=== PATIENT | female | born 1940 | race Caucasian/White ===

== ENCOUNTER 2018-12-05 15:07 | Emergency (ER) | payer MEDICARE, BC ==
[2018-12-05 15:26] VITALS: RESP 18; TEMP 98.2
[2018-12-05] MEDS ORDERED: HYDROcodone/APAP 5-325MG 1 EACH TAB PO STA (15:35)
--- NOTE | 2018-12-05 15:36 | ED ---
Fall HPI - General Chief Complaint: Fall Stated Complaint: Fall, ankle pain Time Seen by Provider: 12/05/18 15:26 Source: patient Mode of arrival: ambulatory - History of Present Illness Initial Comments: 78-year-old female with past medical history of hypertension, controlled presents today for chief complaint of left ankle pain. Patient states that today around 8:30 AM she fell on ice twisting her left ankle. She denies any chest pain, dyspnea, headache, dizziness or any other complaints prior to falling. She states it was due to the ice. Patient states she was ambulatory with pain after however noticed significant swelling. Patient states she was concerned of fracture. When pain persisted she presented to the emergency department for evaluation. Patient denies head injury or neck injury upon falling. Denies any complaints of back pain including lumbar back pain. Patient denies any numbness, tingling or loss sensation of the lower extremity patient denies any coolness or pallor of the extremity. Patient states it is painful to range the left ankle. Remaining ROS, patient denies any recent fever , chills, shortness of breath, chest pain, back pain, abdominal pain, nausea or vomiting, dysuria or hematuria, constipation or diarrhea, headaches or visual changes, or any other complaints. Upon arrival pt pleasant, smiling. Well appearing no acute distress. - Related Data Allergies Allergy/AdvReac Type Severity Reaction Status Date / Time latex Allergy Rash/Hives Verified 12/05/18 15:21 Penicillins Allergy Rash/Hives Verified 12/05/18 15:21 Review of Systems ROS Statement: Those systems with pertinent positive or pertinent negative responses have been documented in the HPI. ROS Other: All systems not noted in ROS Statement are negative. Past Medical History Past Medical History: Hypertension, Syncope Additional Past Medical History / Comment(s): macular degeneration History of Any Multi-Drug Resistant Organisms: None Reported Past Surgical History: Breast Surgery, Cholecystectomy, Hernia Repair Additional Past Surgical History / Comment(s): partial thyroidectomy, L mastectomy Past Psychological History: No Psychological Hx Reported Smoking Status: Current every day smoker Past Alcohol Use History: None Reported Past Drug Use History: None Reported General Exam - General Exam Comments Initial Comments: General: The patient is awake and alert, in no distress, and does not appear acutely ill. Eye: +3 mm pupils are equal, round and reactive to light, extra-ocular movements are intact. No nystagmus. There is normal conjunctiva bilaterally. No signs of icterus. No [place] or raccoon sign. Ears, nose, mouth and throat: There are moist mucous membranes and no oral lesions. Neck: The neck is supple, there is no tenderness or JVD. The tenderness midline or paravertebral of the entire length of the spinal column from cervical to lumbar. Cardiovascular: There is a regular rate and rhythm. No murmur, rub or gallop is appreciated. Respiratory: Lungs are clear to auscultation, respirations are non-labored, breath sounds are equal. No wheezes, stridor, rales, or rhonchi. Musculoskeletal: Upon inspection of the ankles and feet bilaterally there is soft tissue swelling over the left lateral malleolus. There is mild ecchymosis. Patient has limited range of motion at the left ankle secondary to pain. No gross deformity of the ankle. Normal ROM, no tenderness of the right ankle and at the knees bilaterally. Strength 5/5 of the LE equal b/l. Sensation intact of the LE equal b/l . DP and radial pulses equal bilaterally 2+ . Neurological: A&O x 3. CN II-XII intact, There are no obvious motor or sensory deficits. Coordination appears grossly intact. Speech is normal. Skin: Skin is warm and dry and no rashes or lesions are noted. Psychiatric: Cooperative, appropriate mood & affect, normal judgment. Limitations: no limitations Course Vital Signs 12/05/18 12/05/18 15:21 16:34 Temperature 98.2 F Pulse Rate 58 L 57 L Respiratory 18 18 Rate Blood Pressure 129/59 171/72 O2 Sat by Pulse 94 L 95 Oximetry Medical Decision Making - Medical Decision Making Exam revealed no acute osseous process. There is no point tenderness of the medial malleolus. No pain to palpation of the foot or knee. Patient is neurovascularly intact. Patient is an inventory. Patient states she has a walker home which she will use for ambulation. Patient denies any other complaints. Examination unremarkable. Patient appears well. At this time I do feel patient is stable for discharge with outpatient orthopedic evaluation. Patient is placed in air splint. He is agreeable plan discharge, denies questions at this time. Return parameters were discussed at length patient verbalized understanding. I did review all radiographic imaging as my attending provider did as well Dr. Flores. He agreed to impression and plan. Disposition Clinical Impression: Left ankle sprain, Fall from slipping on ice Disposition: HOME SELF-CARE Condition: Good Instructions (If sedation given, give patient instructions): Ankle Sprain (ED) Additional Instructions: Please use medication as discussed. Please follow-up with orthopedic surgery in the next 1-2 days.. Please return to emergency room if the symptoms increase or worsen or for any other concerns. Is patient prescribed a controlled substance at d/c from ED?: No Referrals: Bob Mayes MD [Primary Care Provider] - 1-2 days Rigo Overton DO [Medical Doctor] - 1-2 days Time of Disposition: 16:28
--- NOTE | 2018-12-05 15:58 | XR ---
EXAMINATION TYPE: XR knee complete LT DATE OF EXAM: 12/05/2018 COMPARISON: NONE HISTORY: Pain TECHNIQUE: Four views are submitted. FINDINGS: Diffuse osteopenia. There are vascular calcifications. There is chondrocalcinosis with narrowing of t he medial compartment of the knee joint.. Osseous structures are intact. No acute fracture seen. IMPRESSION: 1. There is a linear lucency along the upper margin of patella seen only on the lateral view. This ma y be related to partial volume averaging.. Correlate with point tenderness to exclude hairline nondis placed fracture. Diffuse osteopenia and arthropathy.
--- NOTE | 2018-12-05 16:02 | XR ---
EXAMINATION TYPE: XR ankle complete LT DATE OF EXAM: 12/05/2018 COMPARISON: NONE HISTORY: Pain FINDINGS: Three views of the ankle demonstrate the ankle mortise to be intact and symmetric. The joint spaces are preserved. The osseous structures are intact. Diffuse osteopenia noted. Soft tissue swelling la terally. Bony density inferior to the medial malleolus. Small plantar calcaneal spur. IMPRESSION: 1. Soft tissue swelling laterally. Bony density inferior to the medial malleolus may be chronic corre late with point tenderness. 2. Diffuse osteopenia
[2018-12-05 16:36] VITALS: BP 171/72; PULSE 57
== END 2018-12-05 16:42 | disposition home or self-care (01) ==
LOC: EC 15:07
DX: S93.402A Sprain of unspecified ligament of left ankle, initial encounter (principal); F17.200 Nicotine dependence, unspecified, uncomplicated; Z91.040 Latex allergy status; Z88.0 Allergy status to penicillin; W00.0XXA Fall on same level due to ice and snow, initial encounter
CPT/HCPCS: 73562; 73610; 99283; 29515; L4350

== ENCOUNTER → 2019-03-05 | Outpatient (CLI) | payer MEDICARE, BC ==
--- NOTE | 2019-03-05 13:53 | MM ---
Reason for exam: additional evaluation requested from prior study. Last mammogram was performed 2 years and 10 months ago. History: Patient is postmenopausal and has history of breast cancer at age 63. Mastectomy of the left breast, May 12, 2003. Malignant stereotactic core biopsy of the left breast, April 23, 2003. Core biopsy of the left breast. Took estrogen for 3 years 6 months beginning at age 44. Took progesterone for 3 years 6 months beginning at age 44. Took antineoplastic for 5 years beginning at age 63. Physical Findings: Nurse did not find any significant physical abnormalities on exam. MG 3D Diag Mammo W/Cad RT CC and MLO view(s) were taken of the right breast. Prior study comparison: April 25, 2016, right breast MG 3d diag mammo w/cad RT. March 16, 2015, right breast MG diagnostic mammo RT w CAD. The breast tissue is heterogeneously dense. This may lower the sensitivity of mammography. There is no discrete abnormality. No significant new findings when compared with previous films. These results were verbally communicated with the patient and result sheet given to the patient on 03/05/19. ASSESSMENT: Benign, BI-RAD 2 RECOMMENDATION: Routine screening mammogram of the right breast in 1 year.
--- NOTE | 2019-03-05 14:28 | BD ---
EXAMINATION TYPE: Axial Bone Density DATE OF EXAM: 03/05/2019 COMPARISON: 2016 CLINICAL HISTORY: disorder of bone Height: 5'1 /2 Weight: 100 FRAX RISK QUESTIONS: History of Fracture in Adulthood: y Secondary Osteoporosis: current tobacco use: y RISK FACTORS HISTORY OF: Surgery to Spine/: L sp When: 2009 Active: n Postmenopausal woman: y Thyroid Medications: synthroid Which medication: How Lon MEDICATIONS: Additional Medications: blood pressure, synthroid Additional History: EXAM MEASUREMENTS: Bone mineral densitometry was performed using the [employer] System. Bone mineral density about the R hip (g/cm2): 0.747 Bone mineral density about the L hip (g/cm2): 0.725 T Score values are as follows: -----R Neck: -2.1 -----L Neck: -2.3 -----R Total: -2.5 -----L Total: -2.45 Bone mineral density has: Decreased -9.2% since study of: 10/19/2015 Bone mineral density about the L Wrist (g/cm2): 0.301 T Score values are as follows: -----Dist. R+U: -6.8 -----Prox. R+U: -4.6 -----Radius total: -6.2 IMPRESSION: Osteoporosis (T Score less than -2.5). There is increased fracture risk and therapy is usually indicated based on age. Re-Screen 1-2 years. NOTE: T-SCORE=SD OF THE YOUNG ADULT MEAN.
== END | disposition home or self-care (01) ==
LOC: RADMAMWWP 13:18
PROVIDERS: ATTEND Internal Medicine
DX: R92.8 Other abnormal and inconclusive findings on diagnostic imaging of breast (principal); M81.0 Age-related osteoporosis without current pathological fracture
CPT/HCPCS: 77080; 77065; G0279; 77061

== ENCOUNTER 2021-03-29 16:30 | Observation (INO) | payer MEDICARE, BC ==
[2021-03-29] MEDS ORDERED: SODIUM CHLORIDE 0.9% 500 ML 500 ML IV ONE (17:06)
--- NOTE | 2021-03-29 17:41 | ED ---
General Adult HPI - General Chief complaint: Fall Stated complaint: Fall Time Seen by Provider: 03/29/21 16:59 Source: patient, EMS, RN notes reviewed, old records reviewed Mode of arrival: EMS Limitations: no limitations - History of Present Illness Initial comments: 81-year-old female status post ground-level fall. Patient had been transported by EMS. She had complained of right ankle pain and right shoulder pain status post a fall. There was minor head injury as well. No loss consciousness. She was placed in a c-collar during transportation. She denied any preceding palpitations or chest pain. She states the fall was mechanical in nature. - Related Data Home Medications Medication Instructions Recorded Confirmed Aspirin [Adult Low Dose Aspirin EC] 81 mg PO DAILY 03/29/21 03/29/21 Calcium Carbonate [Calcium] 600 mg PO DAILY 03/29/21 03/29/21 Glucosamine Sulfate 500 mg PO DAILY 03/29/21 03/29/21 Levothyroxine Sodium [Synthroid] 50 mcg PO DAILY 03/29/21 03/29/21 Metoprolol Tartrate [Lopressor] 50 mg PO DAILY 03/29/21 03/29/21 Vit C/E/Zn/Coppr/Lutein/Zeaxan 2 tab PO DAILY 03/29/21 03/29/21 [Preservision Areds 2 Softgel] amLODIPine [Norvasc] 5 mg PO DAILY 03/29/21 03/29/21 Allergies Allergy/AdvReac Type Severity Reaction Status Date / Time latex Allergy Rash/Hives Verified 03/29/21 18:37 Penicillins Allergy Rash/Hives Verified 03/29/21 18:37 Review of Systems ROS Statement: Those systems with pertinent positive or pertinent negative responses have been documented in the HPI. ROS Other: All systems not noted in ROS Statement are negative. Past Medical History Past Medical History: Hypertension, Syncope Additional Past Medical History / Comment(s): macular degeneration History of Any Multi-Drug Resistant Organisms: None Reported Past Surgical History: Breast Surgery, Cholecystectomy, Hernia Repair Additional Past Surgical History / Comment(s): partial thyroidectomy, L mastectomy Past Psychological History: No Psychological Hx Reported Past Alcohol Use History: None Reported Past Drug Use History: None Reported General Exam Limitations: no limitations General appearance: alert, in no apparent distress Head exam: Present: atraumatic, normocephalic Eye exam: Present: normal appearance, PERRL Neck exam: Present: normal inspection. Absent: tenderness, meningismus Respiratory exam: Present: normal lung sounds bilaterally. Absent: respiratory distress, wheezes Cardiovascular Exam: Present: regular rate, normal rhythm GI/Abdominal exam: Present: soft. Absent: distended, tenderness Extremities exam: Absent: full ROM (Decreased range of motion of the right shoulder, with deformity. Right ankle, swelling at the lateral malleolus, no gross deformity, distal pulses are intact.) Neurological exam: Present: alert, oriented X3 Psychiatric exam: Present: normal affect, normal mood Skin exam: Present: warm, dry Course Vital Signs 03/29/21 16:46 Temperature 98.0 F Pulse Rate 58 L Respiratory 16 Rate Blood Pressure 198/81 O2 Sat by Pulse 95 Oximetry EKG Findings - EKG Comments: EKG Findings:: EKG: Sinus bradycardia, left anterior fascicular block. Q waves in the corneal leads rate of 56, NC interval 160, QRS duration 118, QTC 548. Medical Decision Making - Medical Decision Making 81-year-old female status post fall. Minor head trauma. Head CT is negative for intracranial hemorrhage mass effect. Did perform x-rays of the chest, ankle, and right shoulder. Patient has a right proximal humerus fracture. She's placed in a sling. I did initially plan to discharge this patient however she lives alone normally walks with a cane. She did have a additional right ankle sprain given the living situation and the injury she's had sustained she will be admitted, may require rehab. Case discussed with Felicita calderon for [facility] hospitalists - Lab Data Result diagrams: 03/29/21 17:46 03/29/21 17:46 Lab Results 03/29/21 03/29/21 03/29/21 Range/Units 17:46 17:46 19:25 WBC 17.0 H (3.8-10.6) k/uL RBC 4.80 (3.80-5.40) m/uL Hgb 15.1 (11.4-16.0) gm/dL Hct 44.2 (34.0-46.0) % MCV 92.1 (80.0-100.0) fL MCH 31.5 (25.0-35.0) pg MCHC 34.2 (31.0-37.0) g/dL RDW 12.9 (11.5-15.5) % Plt Count 191 (150-450) k/uL MPV 7.1 Neutrophils % 89 % Lymphocytes % 6 % Monocytes % 3 % Eosinophils % 1 % Basophils % 0 % Neutrophils # 15.2 H (1.3-7.7) k/uL Lymphocytes # 1.1 (1.0-4.8) k/uL Monocytes # 0.5 (0-1.0) k/uL Eosinophils # 0.1 (0-0.7) k/uL Basophils # 0.1 (0-0.2) k/uL Sodium 139 (137-145) mmol/L Potassium 4.1 (3.5-5.1) mmol/L Chloride 102 (98-107) mmol/L Carbon Dioxide 31 H (22-30) mmol/L Anion Gap 6 mmol/L BUN 20 H (7-17) mg/dL Creatinine 0.47 L (0.52-1.04) mg/dL Est GFR (CKD-EPI)AfAm >90 (>60 ml/min/1.73 sqM) Est GFR (CKD-EPI)NonAf >90 (>60 ml/min/1.73 sqM) Glucose 186 H (74-99) mg/dL Calcium 9.1 (8.4-10.2) mg/dL Total Bilirubin 0.2 (0.2-1.3) mg/dL AST 35 (14-36) U/L ALT 15 (4-34) U/L Alkaline Phosphatase 77 (38-126) U/L Total Protein 6.1 L (6.3-8.2) g/dL Albumin 3.8 (3.5-5.0) g/dL Urine Color Yellow Urine Appearance Clear (Clear) Urine pH 5.5 (5.0-8.0) Ur Specific [place] 1.017 (1.001-1.035) Urine Protein Trace H (Negative) Urine Glucose (UA) Negative (Negative) Urine Ketones Negative (Negative) Urine Blood Negative (Negative) Urine Nitrite Negative (Negative) Urine Bilirubin Negative (Negative) Urine Urobilinogen <2.0 (<2.0) mg/dL Ur Leukocyte Esterase Negative (Negative) Disposition Clinical Impression: Fall, Closed right humeral fracture Disposition: ADMITTED IP TO THIS HOSP Condition: Stable Is patient prescribed a controlled substance at d/c from ED?: No Referrals: Hermes Shah MD [Primary Care Provider] - 1-2 days Decision to Admit Reason: Admit from EC Decision Date: 03/29/21 Decision Time: 19:47
[2021-03-29 17:55] LABS: Basophils # (A) 0.1 k/uL (0-0.2); Basophils % (A) 0 %; Eosinophils # (A) 0.1 k/uL (0-0.7); Eosinophils % (A) 1 %; HCT 44.2 % (34.0-46.0); HGB 15.1 gm/dL (11.4-16.0); Lymphocytes # (A) 1.1 k/uL (1.0-4.8); Lymphocytes % (A) 6 %; MCH 31.5 pg (25.0-35.0); MCHC 34.2 g/dL (31.0-37.0); MCV 92.1 fL (80.0-100.0); Mean Platelet Volume 7.1; Monocytes # (A) 0.5 k/uL (0-1.0); Monocytes % (A) 3 %; Neutrophils # (A) 15.2 k/uL (1.3-7.7); Neutrophils % (A) 89 %; Platelet Count 191 k/uL (150-450); RDW 12.9 % (11.5-15.5)
--- NOTE | 2021-03-29 18:00 | XR ---
EXAMINATION TYPE: XR ankle complete RT DATE OF EXAM: 03/29/2021 CLINICAL HISTORY: Fall injury with pain TECHNIQUE: Frontal, lateral and oblique images of the right ankle are obtained. COMPARISON: None. FINDINGS: [place] osseous structures are demineralized which is noted to lower radiographic sensitivi ty. There is no acute fracture/dislocation evident in the right ankle. The ankle mortise appears wit hin normal limits. Moderate soft tissue swelling over the lateral malleolus extending anteriorly. Sma ll to moderate sized inferior calcaneal spur. IMPRESSION: Moderate soft tissue swelling without acute fracture or dislocation in the right ankle.
--- NOTE | 2021-03-29 18:02 | XR ---
EXAMINATION TYPE: XR chest 1V portable DATE OF EXAM: 03/29/2021 COMPARISON: Chest pain. HISTORY: Chest x-ray March 28, 2010 TECHNIQUE: Single frontal view of the chest is obtained. FINDINGS: There is chronic parenchymal change bilaterally without suspicious focal air space opacity , pleural effusion, or pneumothorax seen. The cardiac silhouette size is more prominent but within n ormal limits. Atherosclerotic change aortic knob. The osseous structures are demineralized. Displace d impacted fracture surgical neck right proximal humerus noted. Overlying bra strap current study. IMPRESSION: Chronic changes without acute pulmonary process. Acute impacted fracture surgical neck r ight proximal humerus.
--- NOTE | 2021-03-29 18:03 | XR ---
EXAMINATION TYPE: XR shoulder complete RT DATE OF EXAM: 03/29/2021 CLINICAL HISTORY: Fall injury with pain. TECHNIQUE: Three views of the right shoulder are obtained. COMPARISON: None. FINDINGS: [place] osseous structures are demineralized. Acute comminuted impacted fracture surgical ne ck right proximal humerus. There is displaced 3.9 x 0.6 cm curvilinear fracture fragment involving th e greater tuberosity. No glenohumeral joint dislocation. Moderate to severe narrowing at the acromioc lavicular joint with moderate superior capsular hypertrophy. Visualized ribs are intact. IMPRESSION: As above.
[2021-03-29 18:07] LABS: ALT 15 U/L (4-34); AST 35 U/L (14-36); African American GFR (CKD) >90 (>60 ml/min/1.73 sqM); Albumin 3.8 g/dL (3.5-5.0); Alkaline Phosphatase 77 U/L (38-126); Anion Gap 6 mmol/L; Blood Urea Nitrogen 20 mg/dL (7-17); Calcium 9.1 mg/dL (8.4-10.2); Carbon Dioxide 31 mmol/L (22-30); Chloride 102 mmol/L (98-107); Glucose 186 mg/dL (74-99); Non-African American GFR(CKD) >90 (>60 ml/min/1.73 sqM); Potassium 4.1 mmol/L (3.5-5.1); Sodium 139 mmol/L (137-145); Total Bilirubin 0.2 mg/dL (0.2-1.3); Total Protein 6.1 g/dL (6.3-8.2)
--- NOTE | 2021-03-29 18:23 | CT ---
EXAMINATION TYPE: CT brain yoli yao DATE OF EXAM: 03/29/2021 COMPARISON: NONE HISTORY: Fall injury with posterior headache and neck pain. CT DLP: 1281.7 mGycm. Automated Exposure Control for Dose Reduction was Utilized. TECHNIQUE: CT scan of the head and cervical spine are performed without contrast. FINDINGS: There is no acute intracranial hemorrhage or midline shift identified. Mild to moderate d iffuse ventricular and sulcal prominence. Mild to moderate low-attenuation in the deep and periventr icular white matter. Bilateral basal ganglia calcifications. The globes are intact and the visualized sinuses are clear. Patchy cerumen in the deep external auditory canals bilaterally. The calvarium is intact. Cervical spine is visualized in its entirety from C1 through upper thoracic levels and demonstrates g rade 1 retrolisthesis C5 on C6. Prevertebral soft tissue appears within normal limits. The C1-C2 ar ticulation is within normal limits on the coronal images. Osseous structures are demineralized. Ther e is dextroconvex scoliosis or positioning on coronal images. Moderate to severe disc space narrowing C5-C6 level. Posterior spur disc complex effaces the anterior thecal sac at this level. Vertebral abhijit dy heights are maintained. Posterior calcified disc herniation effaces the anterior thecal sac at C3- C4 level. Review of axial images shows multilevel uncovertebral facet degenerative changes contributi ng to multilevel bilateral neural foraminal narrowing, findings most prominent at right C4-C5 level. Lung apices show no pneumothorax. There is emphysematous change with [id number] biapical pleura l/parenchymal scarring. Some mucous plugging and/or nodularity in the upper lobes is felt present. Fo llow-up nonemergent chest CT is advised to further evaluate. IMPRESSION: 1. There is no acute fracture or dislocation evident in the cervical spine. 2. No acute intracranial hemorrhage or midline shift is seen.
[2021-03-29 19:41] LABS: Appearance,Urine Clear (Clear); Bilirubin,Urine Negative (Negative); Blood,Urine Negative (Negative); Color,Urine Yellow; Glucose,Urine (UA) Negative (Negative); Ketones,Urine Negative (Negative); Leukocyte Esterase,Urine Negative (Negative); Nitrite,Urine Negative (Negative); PH, Urine 5.5 (5.0-8.0); Protein,Urine Trace (Negative); Specific Gravity,Urine 1.017 (1.001-1.035); Urobilinogen,Urine <2.0 mg/dL (<2.0)
[2021-03-29] MEDS ORDERED: ONDANSETRON 4 MG/2 ML VIAL IVP PRN (19:43)
[2021-03-29] MEDS ORDERED: NALOXONE 0.4 MG/ML 1 ML VIAL IV PRN (19:43)
[2021-03-29] MEDS: MORPHINE SULFATE 4 MG/ML SYRINGE IV PRN (20:00)
[2021-03-29] MEDS: SODIUM CHLORIDE 0.9% 1,000 ML IV SCH (20:02)
[2021-03-30] MEDS: LEVOTHYROXINE 50 MCG TAB PO SCH (05:18)
[2021-03-30] MEDS ORDERED: NON FORMULARY DRUG (Glucosamine Sulfate 500 MG Cap) PO SCH (09:45)
[2021-03-30 10:27] LABS: Basophils % (A) 0 %; Eosinophils % (A) 0 %; HCT 36.3 % (34.0-46.0); HGB 12.4 gm/dL (11.4-16.0); Lymphocytes # (A) 0.8 k/uL (1.0-4.8); Lymphocytes % (A) 12 %; MCH 31.7 pg (25.0-35.0); MCHC 34.2 g/dL (31.0-37.0); MCV 92.6 fL (80.0-100.0); Monocytes # (A) 0.5 k/uL (0-1.0); Monocytes % (A) 7 %; Neutrophils # (A) 5.6 k/uL (1.3-7.7); Neutrophils % (A) 80 %; Platelet Count 163 k/uL (150-450); RBC 3.92 m/uL (3.80-5.40); RDW 12.9 % (11.5-15.5)
[2021-03-30] MEDS: MORPHINE SULFATE 4 MG/ML SYRINGE IV PRN ×2 (10:38→14:23)
[2021-03-30] MEDS: SODIUM CHLORIDE 0.9% 1,000 ML IV SCH ×2 (11:29→20:22)
--- NOTE | 2021-03-30 12:09 | P.CRDCN ---
History of Present Illness Consult date: 03/30/21 History of present illness: HISTORY OF PRESENT ILLNESS: This is a 81-year-old female with a past medical history significant for hypertension and hyperlipidemia. Patient is to follow in office with Dr. Philip but has not been seen in the office since 2013. We have been asked to see the patient in consultation for syncope. Patient examined at the bedside. Patient presented to the hospital with a chief complaint of right ankle pain and right shoulder pain. Patient states yesterday she was walking in her house when she lost her balance and fell. The patient did not pass out or lose consciousness. Her description of the fall is definitely mechanical in nature and not a syncopal episode. She denied any dizziness or lightheadedness. Denied chest pain or pressure. Denied shortness of breath. EKG reveals sinus bradycardia. Left anterior fascicular block. No signs of acute ischemia Chest xray chronic changes without acute pulmonary process. Acute impacted fracture surgical neck of right proximal humerus Right ankle x-ray: Moderate soft tissue swelling without acute fracture or dislocation the right ankle Right shoulder x-ray: Acute comminuted impacted fracture surgical neck right proximal humerus. Laboratory data: WBC 17.0. Hemoglobin 15.1. Platelet count 191. Sodium 139. Potassium 4.1. BUN 20. Creatinine 0.47. Current home cardiac medications include metoprolol tartrate 50 mg daily, amlodipine 5 mg daily, and aspirin 81 mg daily Most recent echocardiogram obtained in 2013 reveals normal LV size with normal function, trace aortic regurgitation, mild mitral regurgitation, [id number] tricuspid regurgitation. Patient underwent nuclear stress test in 2014 which was negative for ischemia REVIEW OF SYSTEMS: At the time of my exam: CONSTITUTIONAL: Denies fever or chills. HEENT: Denies blurred vision, vision changes, or eye pain. Denies hemoptysis CARDIOVASCULAR: Denies chest pain. Denies orthopnea. Denies PND. Denies palpitations RESPIRATORY: Denies shortness of breath. GASTROINTESTINAL: Denies abdominal pain. Denies nausea or vomiting. HEMATOLOGIC: Denies bleeding disorders. GENITOURINARY: Denies any blood in urine. SKIN: Denies pruitis. Denies rash. PHYSICAL EXAM: VITAL SIGNS: Reviewed. GENERAL: Well-developed in no acute distress. HEENT: Head is normocephalic. Pupils are equal, round. Sclerae anicteric. Mucous membranes of the mouth are moist. Neck supple. No JVD or thyromegaly LUNGS: Respirations even and unlabored. Lungs essentially clear to auscultation bilaterally. HEART: Regular rate and rhythm. S1 and S2 heard. Systolic murmur noted. Early diastolic murmur. ABDOMEN: Soft. Nondistended. Nontender. EXTREMITIES: No clubbing or cyanosis. Peripheral pulses intact. Right ankle swelling. Right arm in sling with decreased range of motion. NEUROLOGIC: Awake and alert. Oriented x 3. ASSESSMENT: Right humerus fracture S/P mechanical fall, no evidence of syncope Hypertension Hyperlipidemia Valvular heart disease PLAN: Resume home cardiac medications Obtain 2D echo to assess cardiac structure and function If patient requires surgical intervention, there is no absolute contrai ndications from a cardiac standpoint to proceed Further recommendations pending patient course Nurse practitioner note has been reviewed by physician. Signing provider agrees with the documented findings, assessment, and plan of care. Past Medical History Past Medical History: Hypertension, Syncope Additional Past Medical History / Comment(s): macular degeneration History of Any Multi-Drug Resistant Organisms: None Reported Past Surgical History: Back Surgery, Breast Surgery, Cholecystectomy, Hernia Repair Additional Past Surgical History / Comment(s): partial thyroidectomy, L mastectomy Past Psychological History: No Psychological Hx Reported Smoking Status: Current every day smoker Past Alcohol Use History: None Reported Past Drug Use History: None Reported Medications and Allergies Home Medications Medication Instructions Recorded Confirmed Type Aspirin [Adult Low Dose Aspirin EC] 81 mg PO DAILY 03/29/21 03/29/21 History Calcium Carbonate [Calcium] 600 mg PO DAILY 03/29/21 03/29/21 History Glucosamine Sulfate 500 mg PO DAILY 03/29/21 03/29/21 History Levothyroxine Sodium [Synthroid] 50 mcg PO DAILY 03/29/21 03/29/21 History Metoprolol Tartrate [Lopressor] 50 mg PO DAILY 03/29/21 03/29/21 History Vit C/E/Zn/Coppr/Lutein/Zeaxan 2 tab PO DAILY 03/29/21 03/29/21 History [Preservision Areds 2 Softgel] amLODIPine [Norvasc] 5 mg PO DAILY 03/29/21 03/29/21 History Allergies Allergy/AdvReac Type Severity Reaction Status Date / Time latex Allergy Rash/Hives Verified 03/29/21 18:37 Penicillins Allergy Rash/Hives Verified 03/29/21 18:37 Physical Exam Vitals: Vital Signs Temp Pulse Pulse Resp BP BP BP 03/30/21 07:00 98.0 F 70 16 157/70 03/30/21 01:56 20 03/30/21 01:02 98.1 F 66 16 99/58 03/29/21 21:42 97.7 F 61 20 102/55 03/29/21 20:07 62 16 118/53 03/29/21 16:46 98.0 F 58 L 16 198/81 Pulse Ox 03/30/21 07:00 90 L 03/30/21 01:56 03/30/21 01:02 90 L 03/29/21 21:42 92 L 03/29/21 20:07 97 03/29/21 16:46 95 Intake and Output 03/29/21 03/30/21 03/30/21 22:59 06:59 14:59 Output Total 500 Balance -500 Output: Urine 500 Straight 500 Other: Voiding Method Diaper Diaper # Voids 2 1 Weight 46.72 kg Results 03/30/21 09:13 03/29/21 17:46 Cardiac Enzymes 03/29/21 Range/Units 17:46 AST 35 (14-36) U/L CBC 03/29/21 03/30/21 Range/Units 17:46 09:13 WBC 17.0 H 7.0 (3.8-10.6) k/uL RBC 4.80 3.92 (3.80-5.40) m/uL Hgb 15.1 12.4 (11.4-16.0) gm/dL Hct 44.2 36.3 (34.0-46.0) % Plt Count 191 163 (150-450) k/uL Comprehensive Metabolic Panel 03/29/21 Range/Units 17:46 Sodium 139 (137-145) mmol/L Potassium 4.1 (3.5-5.1) mmol/L Chloride 102 (98-107) mmol/L Carbon Dioxide 31 H (22-30) mmol/L BUN 20 H (7-17) mg/dL Creatinine 0.47 L (0.52-1.04) mg/dL Glucose 186 H (74-99) mg/dL Calcium 9.1 (8.4-10.2) mg/dL AST 35 (14-36) U/L ALT 15 (4-34) U/L Alkaline Phosphatase 77 (38-126) U/L Total Protein 6.1 L (6.3-8.2) g/dL Albumin 3.8 (3.5-5.0) g/dL Current Medications Generic Name Dose Route Start Last Admin Trade Name Freq PRN Reason Stop Dose Admin Hydrocodone Bitart/Acetaminophen 1 each 03/29/21 19:43 Hydrocodone/Apap 5-325mg 1 Each Tab PO Q4HR PRN Moderate Pain Heparin Sodium (Porcine) 5,000 unit 03/30/21 21:00 Heparin Sodium,Porcine/Pf 5,000 Unit/0.5 Ml Syringe SQ Q12HR LORNA Sodium Chloride 1,000 mls @ 50 mls/hr 03/29/21 19:45 03/30/21 11:29 Saline 0.9% IV 50 mls/hr .Q20H LORNA Administration Levothyroxine Sodium 50 mcg 03/30/21 06:30 03/30/21 05:18 Levothyroxine 50 Mcg Tab PO 50 mcg DAILY@0630 LORNA Administration Morphine Sulfate 4 mg 03/29/21 19:43 03/30/21 10:38 Morphine Sulfate 4 Mg/Ml Syringe IV 4 mg Q4HR PRN Administration Severe Pain Naloxone HCl 0.2 mg 03/29/21 19:43 Naloxone 0.4 Mg/Ml 1 Ml Vial IV Q2M PRN Opioid Reversal Ondansetron HCl 4 mg 03/29/21 19:43 Ondansetron 4 Mg/2 Ml Vial IVP Q8HR PRN Nausea And Vomiting Intake and Output 03/29/21 03/30/21 03/30/21 22:59 06:59 14:59 Output Total 500 Balance -500 Output: Urine 500 Straight 500 Other: Voiding Method Diaper Diaper # Voids 2 1 Weight 46.72 kg 03/30/21 09:13 03/29/21 17:46
[2021-03-30 12:58] VITALS: BMI 17.1
--- NOTE | 2021-03-30 13:22 | P.CNOR ---
History of Present Illness - [facility] Consult date: 03/30/21 Consult reason: fracture (Right proximal humerus fracture and right ankle sprain) History of present illness: The patient is a pleasant 81-year-old female with a history of hypertension and syncope,who presented to the emergency department yesterday after sustaining a fall at home. She states she was reading in a chair and went to stand up and lost her balance. She fell onto her right side and hit her head. She was brought to the emergency department and a CT of the head was performed. X-rays of the right shoulder revealed a proximal humerus fracture and she was placed in a sling. She also has pain and swelling to the right ankle which x-rays were negative. Today, she states her pain is quite severe in the right shoulder. She is unable to ambulate and put weight onto the right ankle. She's also complaining of new pain in the left knee which she did not have yesterday. The patient does live alone but her daughter is down the street. Review of Systems Constitutional: Denies chills, Denies fatigue, Denies fever Cardiovascular: Denies chest pain, Denies shortness of breath Respiratory: Denies cough Gastrointestinal: Denies diarrhea, Denies nausea, Denies vomiting Musculoskeletal: right: ankle pain, ankle stiffness, ankle swelling, shoulder pain, shoulder stiffness, shoulder swelling, left: knee pain Neurological: Denies headaches Past Medical History Past Medical History: Hypertension, Syncope Additional Past Medical History / Comment(s): macular degeneration History of Any Multi-Drug Resistant Organisms: None Reported Past Surgical History: Back Surgery, Breast Surgery, Cholecystectomy, Hernia Repair Additional Past Surgical History / Comment(s): partial thyroidectomy, L ma stectomy Past Psychological History: No Psychological Hx Reported Smoking Status: Current every day smoker Past Alcohol Use History: None Reported Past Drug Use History: None Reported Medications and Allergies Home Medications Medication Instructions Recorded Confirmed Type Aspirin [Adult Low Dose Aspirin EC] 81 mg PO DAILY 03/29/21 03/29/21 History Calcium Carbonate [Calcium] 600 mg PO DAILY 03/29/21 03/29/21 History Glucosamine Sulfate 500 mg PO DAILY 03/29/21 03/29/21 History Levothyroxine Sodium [Synthroid] 50 mcg PO DAILY 03/29/21 03/29/21 History Metoprolol Tartrate [Lopressor] 50 mg PO DAILY 03/29/21 03/29/21 History Vit C/E/Zn/Coppr/Lutein/Zeaxan 2 tab PO DAILY 03/29/21 03/29/21 History [Preservision Areds 2 Softgel] amLODIPine [Norvasc] 5 mg PO DAILY 03/29/21 03/29/21 History Allergies Allergy/AdvReac Type Severity Reaction Status Date / Time latex Allergy Rash/Hives Verified 03/29/21 18:37 Penicillins Allergy Rash/Hives Verified 03/29/21 18:37 Physical Examination The patient is a pleasant 81-year-old female in no acute distress. She is alert and oriented 3. Exam of the right shoulder reveals no open wounds or abrasions noted. Mild swelling is present. Minimal ecchymosis present. No tenderness along the cervical spine but does have some mild pain to the trapezius muscle. No elbow pain present. Good hand and wrist range of motion. No numbness present. Good radial pulse. Exam of the right ankle reveals swelling to the lateral aspect. Pain upon palpation to the lateral malleolus and ATFL. No medial malleolus pain. She is able to wiggle her toes without difficulty. Neurological and circulatory status is intact. Exam of the left knee reveals no swelling or ecchymosis present. No open wounds. There is pain upon palpation to the anterior aspect of the knee. Good foot and ankle motion. Neurological and circulatory status is intact of the left lower extremity. Results - Labs Labs: Abnormal Lab Results - Last 24 Hours (Table) 03/29/21 03/29/21 03/29/21 Range/Units 17:46 17:46 19:25 WBC 17.0 H (3.8-10.6) k/uL Neutrophils # 15.2 H (1.3-7.7) k/uL Lymphocytes # (1.0-4.8) k/uL Carbon Dioxide 31 H (22-30) mmol/L BUN 20 H (7-17) mg/dL Creatinine 0.47 L (0.52-1.04) mg/dL Glucose 186 H (74-99) mg/dL Total Protein 6.1 L (6.3-8.2) g/dL Urine Protein Trace H (Negative) 03/30/21 Range/Units 09:13 WBC (3.8-10.6) k/uL Neutrophils # (1.3-7.7) k/uL Lymphocytes # 0.8 L (1.0-4.8) k/uL Carbon Dioxide (22-30) mmol/L BUN (7-17) mg/dL Creatinine (0.52-1.04) mg/dL Glucose (74-99) mg/dL Total Protein (6.3-8.2) g/dL Urine Protein (Negative) H & H 03/29/21 03/30/21 Range/Units 17:46 09:13 Hgb 15.1 12.4 (11.4-16.0) gm/dL Hct 44.2 36.3 (34.0-46.0) % Result Diagrams: 03/30/21 09:13 03/29/21 17:46 - Diagnostic results Shoulder x-ray: image reviewed (X-rays of the right shoulder reveal a minimally displaced greater tuberosity fracture and humeral neck fracture, no dislocation noted.) Ankle/Foot x-ray: image reviewed (X-rays of the right ankle reveal no acute fracture seen. Soft tissue swelling present.) Assessment and Plan (1) Right ankle sprain Current Visit: Yes Status: Acute Code(s): S93.401A - SPRAIN OF UNSPECIFIED LIGAMENT OF RIGHT ANKLE, INIT ENCNTR SNOMED Code(s): 34613797 (2) Knee pain, left Current Visit: Yes Status: Acute Code(s): M25.562 - PAIN IN LEFT KNEE SNOMED Code(s): 2847803626 (3) Closed right humeral fracture Current Visit: Yes Status: Acute Code(s): S42.301A - UNSP FRACTURE OF SHAFT OF HUMERUS, RIGHT ARM, INIT SNOMED Code(s): 00186508 (4) Fall Current Visit: Yes Status: Acute Code(s): W19.XXXA - UNSPECIFIED FALL, INITIAL ENCOUNTER SNOMED Code(s): 1892569 Plan: The clinical and x-ray findings were discussed with the patient and the patient's daughter at the bedside. We will obtain x-rays of the left knee to day. The patient will remain in arm sling and a new sling has been ordered. A premium equalizer boot has been ordered for the right ankle. The patient may weight-bear as tolerated with use of cane, quad cane, or jung-walker. Physical and occupational therapy has been ordered. The patient will likely need skilled rehab placement upon discharge. We will continue to follow patient closely and make further recommendations as needed.
--- NOTE | 2021-03-30 13:41 | XR ---
EXAMINATION TYPE: XR knee limited LT DATE OF EXAM: 03/30/2021 CLINICAL HISTORY: pain after fall TECHNIQUE: Two views of the left knee are obtained. COMPARISON: 12/05/2018 FINDINGS: There is no acute fracture/dislocation evident in left knee. Medial and lateral chondroca lcinosis is present. There is soft tissue swelling about the medial left knee. Vascular calcifications are seen. IMPRESSION: 1. Medial soft tissue swelling 2. Medial and lateral chondrocalcinosis.
--- NOTE | 2021-03-30 14:44 | P.HPIM ---
History of Present Illness H&P Date: 03/30/21 Chief Complaint: Fall Patient is a 81-year-old female with a known history of hypertension, basilar heart disease, macular degeneration, currently everyday smoker and history of falls was brought to the hospital by EMS status post fall. Patient states that she was getting out of the chair and lost balance and fell on her right side. She did hit her head. She was also complaining of shoulder pain and ankle pain.. Denied any chest pain or dizziness. Denied any loss of consciousness. Patient says that she usually loses her balance and had episodes of multiple falls before. Denied any fever or chills. No headache or dizziness or lightheadedness. Denied any recent illnesses. No nausea vomiting or abdominal pain or diarrhea. No dysuria or hematuria. X-ray of the right hand showed moderate soft tissue swelling without acute fracture or dislocation in the right ankle. Chest x-ray showed chronic changes without acute pulmonary process. Acute impacted fracture surgical neck right proximal humerus. X-ray of the shoulder was done. CT head and cervical spine showed no acute fracture dislocation. No acute intracranial hemorrhage or midline shift noted. Next and EKG showed sinus bradycardia. Laboratory data showed WBC 17.0, hemoglobin 15.1 which is 191 and neutrophils 15.2 BUN 20 and creatinine 0.47 and blood sugar is 186 UA negative for infection. Review of Systems Constitutional: Patient denies any fever or chills . No generalized weakness or weight loss. Abdomen: Patient denied nausea vomiting and diarrhea and abdominal pain. Cardiovascular: Patient denies any chest pain or short of breath no pal pitations. Respiratory: patient denied any cough is from production. No shortness of breath Neurologic: Patient denied any numbness or tingling headache. Musculoskeletal: Patient denies any complaints of joint swelling or deformity. Right ankle pain and right shoulder pain. Skin: Negative Psychiatric: Negative Endocrine: No heat or cold intolerance. No recent weight gain. Genitourinary: No dysuria or hematuria. All other 14 point ROS negative except the above Past Medical History Past Medical History: Hypertension, Syncope Additional Past Medical History / Comment(s): macular degeneration History of Any Multi-Drug Resistant Organisms: None Reported Past Surgical History: Back Surgery, Breast Surgery, Cholecystectomy, Hernia Repair Additional Past Surgical History / Comment(s): partial thyroidectomy, L mastectomy Past Psychological History: No Psychological Hx Reported Smoking Status: Current every day smoker Past Alcohol Use History: None Reported Past Drug Use History: None Reported Medications and Allergies Home Medications Medication Instructions Recorded Confirmed Type Aspirin [Adult Low Dose Aspirin EC] 81 mg PO DAILY 03/29/21 03/29/21 History Calcium Carbonate [Calcium] 600 mg PO DAILY 03/29/21 03/29/21 History Glucosamine Sulfate 500 mg PO DAILY 03/29/21 03/29/21 History Levothyroxine Sodium [Synthroid] 50 mcg PO DAILY 03/29/21 03/29/21 History Metoprolol Tartrate [Lopressor] 50 mg PO DAILY 03/29/21 03/29/21 History Vit C/E/Zn/Coppr/Lutein/Zeaxan 2 tab PO DAILY 03/29/21 03/29/21 History [Preservision Areds 2 Softgel] amLODIPine [Norvasc] 5 mg PO DAILY 03/29/21 03/29/21 History Allergies Allergy/AdvReac Type Severity Reaction Status Date / Time latex Allergy Rash/Hives Verified 03/29/21 18:37 Penicillins Allergy Rash/Hives Verified 03/29/21 18:37 Physical Exam Vitals: Vital Signs Temp Pulse Pulse Resp BP BP BP 03/30/21 07:00 98.0 F 70 16 157/70 03/30/21 01:56 20 03/30/21 01:02 98.1 F 66 16 99/58 03/29/21 21:42 97.7 F 61 20 102/55 03/29/21 20:07 62 16 118/53 03/29/21 16:46 98.0 F 58 L 16 198/81 Pulse Ox 03/30/21 07:00 90 L 03/30/21 01:56 03/30/21 01:02 90 L 03/29/21 21:42 92 L 03/29/21 20:07 97 03/29/21 16:46 95 Intake and Output 03/29/21 03/30/21 03/30/21 22:59 06:59 14:59 Output Total 500 Balance -500 Output: Urine 500 Straight 500 Other: Voiding Method Diaper # Voids 2 1 Weight 46.72 kg PHYSICAL EXAMINATION: Patient is lying in the bed comfortably, no acute distress, awake alert and oriented.. HEENT: Normocephalic. Neck is supple. Pupils reactive. Nostrils clear. Oral cavity is moist. Ears reveal no drainage. Neck reveals no JVD, carotid bruits, or thyromegaly. CHEST EXAMINATION: Trachea is central. Symmetrical expansion. Lung mcginnis clear to auscultation and percussion. CARDIAC: Normal S1, S2 with no gallops. No murmurs ABDOMEN: Soft. Bowel sounds normal. No organomegaly. No abdominal bruits. Extremities: reveal no edema. No clubbing or cyanosis Neurologically awake, alert, oriented x3 with well-coordinated movements. No focal deficits noted Skin: No rash or skin lesions. Psychiatric: Coperative. Nonsuicidal Musculoskeletal: No joint swelling or deformity. Right ankle swelling. Right arm Sling in place.. Results CBC & Chem 7: 03/30/21 09:13 03/29/21 17:46 Labs: Abnormal Lab Results - Last 24 Hours (Table) 03/29/21 03/29/21 03/29/21 Range/Units 17:46 17:46 19:25 WBC 17.0 H (3.8-10.6) k/uL Neutrophils # 15.2 H (1.3-7.7) k/uL Carbon Dioxide 31 H (22-30) mmol/L BUN 20 H (7-17) mg/dL Creatinine 0.47 L (0.52-1.04) mg/dL Glucose 186 H (74-99) mg/dL Total Protein 6.1 L (6.3-8.2) g/dL Urine Protein Trace H (Negative) Thrombosis Risk Factor Assmnt - DVT/VTE Prophylaxis DVT/VTE Prophylaxis: Pharmacologic Prophylaxis ordered - Choose All That Apply Any of the Below Risk Factors Present?: No Other Risk Factors: Yes Each Risk Factor Represents 3 Points: Age 75 years or older Each Risk Factor Represents 5 Points: Multiple trauma (< 1 month) Thrombosis Risk Factor Assessment Total Risk Factor Score: 8 Thrombosis Risk Factor Assessment Level: High Risk Assessment and Plan Assessment: Status post mechanical fall. Right humeral neck fracture with minimal displacement. No dislocation. Right ankle swelling History of valvular heart disease, mild to moderate TR History of multiple falls. Hypertension Hyperlipidemia DVT prophylaxis. Plan: Patient will be continued on pain management. Right arm sling was placed. Orth opedic surgery was consulted. Due to history of valvular heart disease 2-D echocardiogram will be obtained and answering cardiology evaluation. Orthostatic vitals were ordered. Continue to follow closely. PT OT will be consulted.
[2021-03-30] MEDS: HYDROcodone/APAP 5-325MG 1 EACH TAB PO PRN (20:20)
[2021-03-30] MEDS: HEPARIN SODIUM,PORCINE/PF 5,000 UNIT/0.5 ML SYRINGE SQ SCH (20:22)
[2021-03-31] MEDS: LEVOTHYROXINE 50 MCG TAB PO SCH (05:33)
[2021-03-31] MEDS: HYDROcodone/APAP 5-325MG 1 EACH TAB PO PRN (05:33)
[2021-03-31] MEDS: HEPARIN SODIUM,PORCINE/PF 5,000 UNIT/0.5 ML SYRINGE SQ SCH (07:49)
--- NOTE | 2021-03-31 08:06 | P.PN ---
Subjective Progress Note Date: 03/31/21 This patient is an 81-year-old female with past medical history of hypertension presented to [facility] emergency currently yesterday after sustaining a mechanical fall at home. Orthopedics was consulted for right proximal humerus fracture right ankle sprain. Patient is seen and examined bedside this morning. She states the pain in her right shoulder is moderate. She states her pain is well-controlled if she doesn't move her shoulder. She remains immobilized in a sling. The patient continues to experience pain in the right ankle. A tall CAM boot was ordered yesterday. She states her left knee pain has improved. She denies numbness or tingling of the right upper extremity. Patient states she plans to go to [facility] at discharge. Patient has no new complaints today. Vital signs stable. Objective - Vital Signs Vital signs: Vital Signs Temp 99.5 F 03/31/21 00:30 Pulse 83 03/31/21 00:30 Resp 18 03/31/21 07:38 BP 116/67 03/31/21 00:30 Pulse Ox 93 L 03/31/21 00:30 Intake & Output 03/30/21 03/31/21 03/31/21 18:59 06:59 18:59 Output Total 700 Balance -700 Weight 46.72 kg Output: Urine 700 Other: Voiding Method Diaper Indwelling Catheter # Voids 0 0 - Exam On examination, the patient is sitting up in bed eating breakfast. She is in no acute distress. She is alert and oriented 3. On inspection of the right shoulder, there is mild swelling. There is diffuse pain with palpation of the shoulder. No pain with palpation of the clavicle, C-spine, elbow, forearm, wrist, hand. No pain with passive range of motion of the wrist or fingers. Motor and sensory function is intact of the right upper extremity. Radial pulse palpable, the right upper extremity is warm and well-perfused. On inspection of the right ankle, there is diffuse swelling and ecchymosis. There is pain on palpation of the medial malleolus. Range of motion is not tested at this time. Motor and sensory function is intact of the right lower extremity. Dorsalis pedis pulse +2. The right lower extremity is warm and well-perfused with brisk capillary refill distally. Calf is soft and nontender to palpation. No evidence of DVT. On inspection of the left knee, there is no knee effusion, no ecchymosis. There is no pain on palpation of the knee. No pain with passive range of motion of the knee. Calf is soft and nontender to palpation. No pain to passive range of motion of the hips bilaterally. - Labs CBC & Chem 7: 03/30/21 09:13 03/29/21 17:46 Labs: Abnormal Lab Results - Last 24 Hours (Table) 03/30/21 Range/Units 09:13 Lymphocytes # 0.8 L (1.0-4.8) k/uL - Imaging and Cardiology Right ankle x-rays 03/29/21: Nondisplaced medial malleolus fracture. No additional fractures identified. Ankle mortise intact. Right shoulder x-rays 03/29/21: Minimally displaced greater tuberosity fracture and humeral neck fracture, no dislocation noted. Left knee x-rays 03/30/21: No acute fractures identified. Assessment and Plan Assessment: Minimally displaced right proximal humerus fracture Nondisplaced medial malleolus fracture, right ankle Plan: - Clinical and imaging findings were discussed with patient. She'll continue to immobilize the right upper extremity in a sling. In regards to the right ankle, recommended immobilization with a tall CAM boot. Upon reevaluation of the right ankle x-rays, it does appear that she has a nondisplaced medial malleolus fracture. Therefore, she should remain nonweightbearing on the right lower extremity while wearing a tall CAM boot. - Discussed with the patient due to her right proximal humerus fracture and right medial malleolus fracture, she would most likely benefit from discharge to a skilled rehab. Patient states she is planning to discharge to [facility]. - We'll continue to follow patient and make recommendations as needed.
[2021-03-31] MEDS ORDERED: ASPIRIN 81 MG PO SCH (09:00)
[2021-03-31] MEDS ORDERED: METOPROLOL TARTRATE 50 MG TAB PO SCH (09:00)
[2021-03-31] MEDS ORDERED: amLODIPine 5 MG TAB PO SCH (09:00)
--- NOTE | 2021-03-31 09:11 | ECHOF ---
Referral Reason:Dizziness MEASUREMENTS -------- HEIGHT: 165.1 cm WEIGHT: 46.7 kg BP: 157/70 RVIDd: 4.1 cm (< 3.3) IVSd: 1.4 cm (0.6 - 1.1) LVIDd: 2.7 cm (3.9 - 5.3) LVPWd: 1.5 cm (0.6 - 1.1) IVSs: 1.5 cm LVIDs: 1.7 cm LVPWs: 1.6 cm LAESV Index (A-L): 44.29 ml/m Ao Diam: 2.7 cm (2.0 - 3.7) AV Cusp: 1.8 cm (1.5 - 2.6) LA Diam: 4.1 cm (2.7 - 3.8) MV EXCURSION: 8.807 mm (> 18.000) MV EF SLOPE: 56 mm/s (70 - 150) EPSS: 0.3 cm MV E Kavon: 1.41 m/s MV DecT: 249 ms MV A Kavon: 1.79 m/s MV E/A Ratio: 0.79 AV maxP.57 mmHg AV meanP.65 mmHg RAP: 5.00 mmHg RVSP: 89.53 mmHg FINDINGS -------- Sinus rhythm. This was a technically adequate study. The left ventricular size is normal. There is moderate concentric left ventricular hypertrophy. O verall left ventricular systolic function is normal with, an EF between 55 - 60 %. The right ventricle is moderate to severely enlarged. LA is severely dilated >40 ml/m2 The right atrium is mildly enlarged. Interatrial and interventricular septum intact. There is moderate to severe aortic valve sclerosis. There is no evidence of aortic regurgitation. There is mild aortic stenosis present. Peak/mean gradient across the Aortic Valve is 26.57mmHg / 1 5.65mmHg. Moderate mitral annular calcification present. [id number] mitral regurgitation is present. Mild mitral stenosis , with a MVA of 2.8cm (by PHT) Moderate tricuspid regurgitation present. There is severe pulmonary hypertension. The right ventr icular systolic pressure, as measured by Doppler, is 89.53mmHg. Trace/mild (physiologic) pulmonic regurgitation. The aortic root size is normal. Normal inferior vena cava with normal inspiratory collapse consistent with estimated right atrial pre ssure of 5 mmHg. There is no pericardial effusion. CONCLUSIONS -------- 1. There is moderate concentric left ventricular hypertrophy. 2. Overall left ventricular systolic function is normal with, an EF between 55 - 60 %. 3. The right ventricle is moderate to severely enlarged. 4. LA is severely dilated >40 ml/m2 5. The right atrium is mildly enlarged. 6. There is moderate to severe aortic valve sclerosis. 7. There is mild aortic stenosis present. 8. Peak/mean gradient across the Aortic Valve is 26.57mmHg / 15.65mmHg. 9. Moderate mitral annular calcification present. 10. Nypkkucx-lb-bflqrq mitral regurgitation is present. 11. Mild mitral stenosis. 12. , with a MVA of 2.8cm (by PHT) 13. Moderate tricuspid regurgitation present. 14. There is severe pulmonary hypertension. 15. Trace/mild (physiologic) pulmonic regurgitation. [employer] WORKER: Eleonora Murray RDCS
--- NOTE | 2021-03-31 11:14 | P.PN ---
Subjective Progress Note Date: 03/31/21 HISTORY OF PRESENT ILLNESS: This is a 81-year-old female with a past medical history significant for hypertension and hyperlipidemia. Patient is to follow in office with Dr. Philip but has not been seen in the office since 2013. We have been asked to see the patient in consultation for syncope. Patient examined at the bedside. Patient presented to the hospital with a chief complaint of right ankle pain and right shoulder pain. Patient states yesterday she was walking in her house when she lost her balance and fell. The patient did not pass out or lose consciousness. Her description of the fall is definitely mechanical in nature and not a syncopal episode. She denied any dizziness or lightheadedness. Denied chest pain or pressure. Denied shortness of breath. EKG reveals sinus bradycardia. Left anterior fascicular block. No signs of acute ischemia Chest xray chronic changes without acute pulmonary process. Acute impacted fracture surgical neck of right proximal humerus Right ankle x-ray: Moderate soft tissue swelling without acute fracture or dislocation the right ankle Right shoulder x-ray: Acute comminuted impacted fracture surgical neck right proximal humerus. Laboratory data: WBC 17.0. Hemoglobin 15.1. Platelet count 191. Sodium 139. Potassium 4.1. BUN 20. Creatinine 0.47. Current home cardiac medications include metoprolol tartrate 50 mg daily, amlodipine 5 mg daily, and aspirin 81 mg daily Most recent echocardiogram obtained in 2013 reveals normal LV size with normal function, trace aortic regurgitation, mild mitral regurgitation, mild-to- moderate tricuspid regurgitation. Patient underwent nuclear stress test in 2013 which was negative for ischemia 03/31/2021 Patient examined this morning at the bedside. Patient denies chest pain or pressure. Denies shortness of breath. Orthopedics evaluated patient and no plans for surgical intervention. Patient now has a boot to her right lower extremity. Echocardiogram completed revealed ejection fraction 55-60%, moderate to severe aortic valve sclerosis, mild aortic stenosis, moderate to severe mitral regurgitation, moderate tricuspid regurgitation, and severe pulmonary hypertension PHYSICAL EXAM: VITAL SIGNS: Reviewed. GENERAL: Well-developed in no acute distress. HEENT: Head is normocephalic. Pupils are equal, round. Sclerae anicteric. Mucous membranes of the mouth are moist. Neck supple. No JVD or thyromegaly LUNGS: Respirations even and unlabored. Lungs essentially clear to auscultation bilaterally. HEART: Regular rate and rhythm. S1 and S2 heard. Systolic murmur noted. Early diastolic murmur. ABDOMEN: Soft. Nondistended. Nontender. EXTREMITIES: No clubbing or cyanosis. Peripheral pulses intact. Right ankle swelling-boot to right lower extremity noted. Right arm in sling with decreased range of motion. NEUROLOGIC: Awake and alert. Oriented x 3. ASSESSMENT: Right humerus fracture S/P mechanical fall, no evidence of syncope Hypertension Hyperlipidemia Valvular heart disease PLAN: Continue current cardiac medications No further inpatient recommendations from a cardiac standpoint We will sign off. Please reconsult if needed Nurse practitioner note has been reviewed by physician. Signing provider agrees with the documented findings, assessment, and plan of care. Objective - Vital Signs Vital signs: Vital Signs Temp 98.1 F 03/31/21 07:00 Pulse 84 03/31/21 07:00 Resp 18 03/31/21 07:38 BP 116/73 03/31/21 07:00 Pulse Ox 98 03/31/21 07:00 Intake & Output 03/30/21 03/31/21 03/31/21 18:59 06:59 18:59 Intake Total 100 Output Total 700 Balance -700 100 Weight 46.72 kg Intake: Oral 100 Output: Urine 700 Other: Voiding Method Diaper Indwelling Catheter # Voids 0 0 - Labs CBC & Chem 7: 03/30/21 09:13 03/29/21 17:46
--- NOTE | 2021-03-31 15:06 | P.DS ---
Providers Date of admission: 03/29/21 19:43 Expected date of discharge: 03/31/21 Attending physician: Dominic Hook Consults: 03/29/21 19:44 Consult Physician Routine Consulting Provider: Dax Talley Consult Reason/Comments: Right humerus fracture Do you want consulting provider notified?: Yes Primary care physician: Hermes Shah MD Hospital Course: Discharge diagnosis Status post mechanical fall. Right humeral neck fracture with minimal displacement. No dislocation. Nondisplaced medial malleolus fracture, right ankle Right ankle swelling History of valvular heart disease, mild to moderate TR History of multiple falls. Hypertension Hyperlipidemia DVT prophylaxis. Hospital course Patient is a 81-year-old female with a known history of hypertension, basilar heart disease, macular degeneration, currently everyday smoker and history of falls was brought to the hospital by EMS status post fall. Patient states that she was getting out of the chair and lost balance and fell on her right side. She did hit her head. She was also complaining of shoulder pain and ankle pain.. Denied any chest pain or dizziness. Denied any loss of consciousness. Patient says that she usually loses her balance and had episodes of multiple falls before. Denied any fever or chills. No headache or dizziness or lightheadedness. Denied any recent illnesses. No nausea vomiting or abdominal pain or diarrhea. No dysuria or hematuria. X-ray of the right hand showed moderate soft tissue swelling without acute fracture or dislocation in the right ankle. Chest x-ray showed chronic changes without acute pulmonary process. Acute impacted fracture surgical neck right proximal humerus. X-ray of the shoulder was done. CT head and cervical spine showed no acute fracture dislocation. No acute intracranial hemorrhage or midline shift noted. Next and EKG showed sinus bradycardia. Laboratory data showed WBC 17.0, hemoglobin 15.1 which is 191 and neutrophils 15.2 BUN 20 and creatinine 0.47 and blood sugar is 186 UA negative for infection. Patient was continued on pain management with [place] 5.. Right arm sling was placed. Patient also found have right ankle medial malleolus fractures nondisplaced. Nonweightbearing boot Placed.. Orthopedic surgery and cardiology has seen the patient.. Due to history of valvular heart disease 2-D echocardiogram was obtained. 2-D echo showed normal EF. Moderate TR and severe pulmonary hypertension was noted.. Patient was seen by PT OT and recommends rehab transfer. Otherwise patient is hemodynamically stable. Leukocytosis is resolved. Mostly reactive. No other acute issues at this time. Patient will be discharged to rehab. PHYSICAL EXAMINATION: Patient is lying in the bed comfortably, no acute distress, awake alert and oriented.. HEENT: Normocephalic. Neck is supple. Pupils reactive. Nostrils clear. Oral cavity is moist. Ears reveal no drainage. Neck reveals no JVD, carotid bruits, or thyromegaly. CHEST EXAMINATION: Trachea is central. Symmetrical expansion. Lung mcginnis clear to auscultation and percussion. CARDIAC: Normal S1, S2 with no gallops. Systolic murmur present. ABDOMEN: Soft. Bowel sounds normal. No organomegaly. No abdominal bruits. Extremities: reveal no edema. No clubbing or cyanosis Neurologically awake, alert, oriented x3 with well-coordinated movements. No focal deficits noted Skin: No rash or skin lesions. Psychiatric: Coperative. Nonsuicidal Musculoskeletal: No joint swelling or deformity. Right ankle swelling. Right hand sling in place. Right arm Sling in place.. Vital Signs 03/31/21 03/31/21 07:00 07:38 Temperature 98.1 F Pulse Rate [ 84 Pulse Oximetery ] Respiratory 16 18 Rate Blood Pressure 116/73 [Right Calf] O2 Sat by Pulse 98 Oximetry Total time taken greater than 35 minutes including 18 minutes for counseling and coordination of care. Patient Condition at Discharge: Stable Plan - Discharge Summary Discharge Rx Participant: Yes New Discharge Prescriptions: Continue Metoprolol Tartrate [Lopressor] 50 mg PO DAILY Glucosamine Sulfate 500 mg PO DAILY Calcium Carbonate [Calcium] 600 mg PO DAILY Aspirin [Adult Low Dose Aspirin EC] 81 mg PO DAILY Levothyroxine Sodium [Synthroid] 50 mcg PO DAILY Vit C/E/Zn/Coppr/Lutein/Zeaxan [Preservision Areds 2 Softgel] 2 tab PO DAILY amLODIPine [Norvasc] 5 mg PO DAILY Discharge Medication List Aspirin [Adult Low Dose Aspirin EC] 81 mg PO DAILY 03/29/21 [History] Calcium Carbonate [Calcium] 600 mg PO DAILY 03/29/21 [History] Glucosamine Sulfate 500 mg PO DAILY 03/29/21 [History] Levothyroxine Sodium [Synthroid] 50 mcg PO DAILY 03/29/21 [History] Metoprolol Tartrate [Lopressor] 50 mg PO DAILY 03/29/21 [History] Vit C/E/Zn/Coppr/Lutein/Zeaxan [Preservision Areds 2 Softgel] 2 tab PO DAILY 03/29/21 [History] amLODIPine [Norvasc] 5 mg PO DAILY 03/29/21 [History] Follow up Appointment(s)/Referral(s): [facility], [NON-STAFF] - 1-2 Days [facility] [NON-STAFF] - As Needed (Supplier of Premium Equalizer Boot) Hermes Shah MD [Primary Care Provider] - 04/04/21 10:00 am Ambulatory/Diagnostic Orders: Ambulatory Miscellaneous Order [MISC.AMB] Location: None Selected Activity/Diet/Wound Care/Special Instructions: Contact CM at discharge if indigent funds needed Discharge Disposition: TRANSFER TO SNF/ECF
[2021-03-31 15:33] VITALS: BP 124/61; PULSE 61; RESP 16; TEMP 98.8
== END 2021-03-31 16:20 ==
LOC: EC 16:30 → 6NMEDSUR 19:43
PROVIDERS: ADMIT Hospitalist; ATTEND Hospitalist
DX: S42.211A Unspecified displaced fracture of surgical neck of right humerus, initial encounter for closed fracture (principal); S82.54XA Nondisplaced fracture of medial malleolus of right tibia, initial encounter for closed fracture; S09.90XA Unspecified injury of head, initial encounter; I10 Essential (primary) hypertension; I08.8 Other rheumatic multiple valve diseases; I27.20 Pulmonary hypertension, unspecified; I44.4 Left anterior fascicular block; E89.0 Postprocedural hypothyroidism; H35.30 Unspecified macular degeneration; M77.31 Calcaneal spur, right foot; R00.1 Bradycardia, unspecified; E78.5 Hyperlipidemia, unspecified; M11.262 Other chondrocalcinosis, left knee; M25.562 Pain in left knee; D72.829 Elevated white blood cell count, unspecified; R29.6 Repeated falls; F17.200 Nicotine dependence, unspecified, uncomplicated; Z20.822 Contact with and (suspected) exposure to COVID-19; Z79.82 Long term (current) use of aspirin; Z79.890 Hormone replacement therapy; Z79.899 Other long term (current) drug therapy; Z91.040 Latex allergy status; Z88.0 Allergy status to penicillin; Z90.49 Acquired absence of other specified parts of digestive tract; Z91.81 History of falling; Z90.12 Acquired absence of left breast and nipple; Z98.890 Other specified postprocedural states; W01.0XXA Fall on same level from slipping, tripping and stumbling without subsequent striking against object, initial encounter; Y92.009 Unspecified place in unspecified non-institutional (private) residence as the place of occurrence of the external cause
CPT/HCPCS: 96376; 96372 ×2; 96375; 96361; 96374; 99285; 36415; 93005; 93306; 97162; 97535; 97166; 80053; 85025 ×2; 81003; 87635; 73030; 73560; 73610; 71045; 72125; 70450; G0378 ×3; J2270 ×2; J2405; J1644 ×2